=== PATIENT | male | born 1960 | race Caucasian/White ===

== ENCOUNTER 2025-03-13 05:23 | Emergency (ER) | payer MEDICARE ==
[2025-03-13 05:54] LABS: #Basophils 0.1 thou/uL (0.0-0.2); #Eosinophils 0.1 thou/uL (0.0-0.7); #Lymphocytes 1.1 thou/uL (1.20-3.40); #Monocytes 0.6 thou/uL (0.11-0.59); #Neutrophils 7.0 thou/uL (1.40-6.50); %Basophils 0.6 % (0.0-1.0); %Eosinophils 1.7 % (0.0-10.0); %Lymphocytes 11.9 % (21.0-51.0); %Monocytes 6.7 % (0.0-10.0); %Neutrophils 79.1 % (42.0-75.0); Hematocrit 45.3 % (42.0-52.0); Hemoglobin 15.4 g/dL (14.0-18.0); Mean Corpuscular Hemoglobin 30.4 pg (27.0-31.0); Mean Corpuscular Volume 89.3 fl (78.0-98.0); Platelet Count 166 10x3/uL (130-400); Red Blood Cell (RBC) Count 5.08 mill/uL (4.70-6.10); White Blood Cell (WBC) Count 8.8 10x3/uL (4.8-10.8)
[2025-03-13 06:06] LABS: ALT (SGPT) 31 U/L (Less than 45); AST (SGOT) 92 U/L (11-34); Albumin 4.0 g/dL (3.1-4.5); Alkaline Phosphatase 87 U/L (40-110); Anion Gap 19 mmol/L (10-20); BUN (Urea Nitrogen) 14 mg/dL (8.4-25.7); Bilirubin, Total 1.9 mg/dL (0.3-1.2); Calc. Creatinine Clearance 0 mL/min (70-130); Calcium 9.8 mg/dL (7.8-10.44); Carbon Dioxide 24 mmol/L (23-31); Chloride 101 mmol/L (98-107); Globulin 3.5 g/dL (2.4-3.5); Glucose 233 mg/dL (80-115); Potassium 3.1 mmol/L (3.5-5.1); Sodium 141 mmol/L (136-145)
[2025-03-13 06:14] LABS: Magnesium 1.5 mg/dL (1.6-2.6)
[2025-03-13 06:21] LABS: Troponin I 11.169 ng/mL (< 0.028)
[2025-03-13 06:25] LABS: Glucose, Urine (Dipstick) 250 mg/dL (Negative); Leukocyte Negative (Negative); Protein, Urine (Dipstick) 100 mg/dL (Neg-Trace); Specific Gravity, Urine 1.020 (1.005-1.030)
[2025-03-13 06:35] LABS: Bacteria/HPF Rare-Few HPF (None Seen); CAUTI Indications for Culture Alt mental st,lethar; RBC/HPF 0-3 HPF (0-3); WBC/HPF 0-3 HPF (0-3)
[2025-03-13 06:37] LABS: Urine Culture Reflex No No
[2025-03-13] MEDS ORDERED: Aspirin Chewable 81 MG TAB ONE (06:49)
[2025-03-13] MEDS ORDERED: Potassium Bicarbonate/Cit Ac 20 MEQ TAB ONE (06:57)
[2025-03-13] MEDS ORDERED: Magnesium 2 GM/50 ML BAG (IN WATER) ONE (06:58)
[2025-03-13] MEDS ORDERED: Heparin 10,000 UNITS/ 10 ML VIAL ONE (07:07)
== END 2025-03-13 07:00 | disposition short-term general hospital (02) ==
LOC: BURERS 05:23
DX: I63.9 Cerebral infarction, unspecified (principal); I21.9 Acute myocardial infarction, unspecified; E87.6 Hypokalemia; E83.42 Hypomagnesemia; I21.4 Non-ST elevation (NSTEMI) myocardial infarction; I10 Essential (primary) hypertension; E11.9 Type 2 diabetes mellitus without complications; R79.89 Other specified abnormal findings of blood chemistry; Z91.148 Patient's other noncompliance with medication regimen for other reason; Z79.899 Other long term (current) drug therapy; Z79.82 Long term (current) use of aspirin; Z79.84 Long term (current) use of oral hypoglycemic drugs
CPT/HCPCS: 70450; 71045; 80053; 81001; 83735; 83880; 84484; 85025; 93005; 94760; J1644; J3475; 96374; 96375